=== PATIENT | male | born 1990 | race Caucasian/White ===

== ENCOUNTER 2021-11-01 10:00 | Outpatient (RCR) | payer MEDICAID, SELFPAY | END 2021-11-08 10:43 | disposition home or self-care (01) | LOC: HO.PTCHIC 10:00 | PROVIDERS: PCP Family Medicine; Visit Provider Family Medicine | DX: M54.9 Dorsalgia, unspecified (principal); M25.562 Pain in left knee | CPT/HCPCS: 97110; 97140; 97161 ==

== ENCOUNTER → 2022-01-14 15:03 | Outpatient (BNVA) | payer MEDICAID, SELFPAY | PROVIDERS: PCP Family Medicine; Referring Provider Family Medicine; Visit Provider Nurse Practitioner Family | DX: K21.9 Gastro-esophageal reflux disease without esophagitis (principal); R14.0 Abdominal distension (gaseous) | CPT/HCPCS: 99202 ==

== ENCOUNTER 2022-05-29 05:39 | Emergency (ER) | payer MEDICAID, SELFPAY ==
--- NOTE | ~2022-05-29 | XR_ITS ---
EXAMINATION: PORTABLE CHEST 1 VIEW CLINICAL INFORMATION: dyspnea . COMPARISON: No recent pertinent prior studies are available for comparison. TECHNIQUE: Portable frontal view of the chest was obtained. FINDINGS: The lungs are hypoexpanded with right basilar markings more likely due to atelectasis. Tiny right effusion would be difficult to exclude. No focal infiltrate, left effusion, edema, or pneumothorax. Cardiac and mediastinal silhouettes are within normal limits for technique. No acute bony abnormality seen. XR/XR chest 1V IMPRESSION: Hypoexpanded with right basilar markings more likely due to subsegmental atelectasis and possible tiny layering right effusion.
--- NOTE | ~2022-05-29 | US_ITS ---
EXAMINATION: US ABDOMEN LIMITED CLINICAL INFORMATION: Right upper quadrant pain.. COMPARISON: None TECHNIQUE: Real-time imaging of the right upper quadrant abdominal viscera. FINDINGS: GALLBLADDER: The gallbladder is physiologically distended without evidence of stones, sludge, polyps, wall thickening or pericholecystic fluid. However there is mild tenderness in the right upper quadrant. There is a prominent echogenic stranding in the gallbladder question fullness versus small calcification. CBD: CBD measures 0.7 cm FREE FLUID: None. US/US abdomen limited IMPRESSION: No echogenic stones or wall thickening or pericholecystic fluid. There is minimal tenderness in the area of gallbladder by ultrasound probe. CBD is slightly prominent measuring 0.7 cm.
[2022-05-29 06:04] VITALS: BP 155/95; PULSE 85; RESP 18; TEMP 37.1; O2SAT 97; BMI 38.5
--- NOTE | 2022-05-29 06:33 | ED.SOB ---
HPI - SOB/Dyspnea General Chief Complaint: Upper Respiratory Symptoms Stated Complaint: Sob Time Seen by Provider: 05/29/22 06:32 Source: patient Mode of arrival: ambulatory Limitations: no limitations History of Present Illness HPI Narrative: 31 yo male with hx of DM, HTN, fatty liver, mood disorder here with c/o working outside friday not taking his medications then suffering heat stroke he reports that he had weakness n/v all day and passed out no injuries. Yesterday he felt short of breath and went to who noted his LFTS were high ? [facility] sent him to [facility] in ambulance. He also felt short of breath. Was in the waiting room. At that time he had a CXR and ended up leaving his PCP told him after LWT he might have fluid on his lungs. MD elicited complaint: shortness of breath and pain with inspiration Pertinent past history: diabetes Onset (ago): day(s) (1) Context: recent illness Timing: intermittent Severity: moderate Exacerbating factors: exertion, coughing and inspiration Relieving factors: nothing Known history of: diabetes Associated symptoms: chest pain, pain with inspiration and abdominal pain Treatment prior to arrival: none Related Data Home Medications Medication Instructions Recorded Confirmed omeprazole 40 mg capsule,delayed 40 mg PO DAILY 12/05/21 release trazodone 50 mg tablet 50 mg PO BEDTIME PRN 12/05/21 lisinopril 10 mg tablet 10 mg PO DAILY 01/14/22 01/14/22 metformin 500 mg tablet 500 mg PO BID 01/14/22 01/14/22 Previous Rx's Medication Instructions Recorded famotidine 20 mg tablet (Pepcid) 20 mg PO BEDTIME #30 tabs 01/14/22 simethicone 180 mg capsule (Gas 180 mg PO BID PRN abdominal 01/14/22 Relief (simethicone)) distention #60 caps Allergies Allergy/AdvReac Type Severity Reaction Status Date / Time olanzapine Allergy Severe liver Verified 01/14/22 15:06 toxicity Review of Systems Review of Systems: Constitutional : No Fever, No Chills ENT/Mouth : No sore throat, No Rhinorrhea, No Swallowing Difficulty Eyes: No Eye Pain, No Swelling, No Redness Cardiovascular : No Chest Pain, positive SOB, No Orthopnea, no Edema Respiratory : No Cough, No Sputum, No Wheezing, positive dyspnea Gastrointestinal : No Nausea, No Vomiting, No Diarrhea, pos abdominal Pain, No Hematochezia, No Melena Genitourinary : No Dysuria, No Urinary Frequency, No Hematuria Musculoskeletal : No joint pain, No Myalgias Skin : No Skin Lesions, No rash Neuro : No Weakness, No Numbness, No Dizziness, No Headache Psych : No Anxiety/Panic, No Depression Heme/Lymph: No Bruising, No Lymphadenopathy Endocrine : No Polyuria, No Polydipsia All other systems reviewed and are negative [facility] Past Medical History Attestation statement: The following information was validated with the patient. Medical History Diabetes Fatty liver HTN (hypertension) Mood disorder Social History Social History (Updated 05/29/22 @ 06:49 by Cristy Aguilar DO) Patient Tobacco Use Status: Never used Tobacco Advance Directives: No Physical Exam Vital Signs: Vital Signs: Last Vital Signs Temp 98.7 F 05/29/22 06:04 Pulse 68 05/29/22 08:47 Resp 16 05/29/22 08:47 BP 142/85 H 05/29/22 08:47 Pulse Ox 98 05/29/22 08:47 O2 Del Method 05/29/22 08:47 BMI result Body Mass Index 38.5 Appearance: Alert. Oriented X3. No acute distress. Eyes: Pupils equal, round and reactive to light. ENT: Pharynx normal. Neck: Normal inspection. Neck supple. CVS: Normal heart rate and rhythm. Pulses normal. Respiratory: No respiratory distress. Breath sounds ndiminished at the bases Abdomen: Soft and RUQ ttp no rebound or guarding Skin: Skin warm and dry. Normal skin color. Normal skin turgor. Extremities: No lower extremity edema. No calf ttp Neuro: Oriented X 3. No motor deficit. No sensory deficit. Course Course Course Narrative: ddimer negative under 230 atelectasis on CXR, no hypoxia, walking in ED to xray no distress, labs within normal limits - mild elevation in LFTs but has fatty liver doubt cholecystitis - can follow up with PCP slight bump in bili but known fatty liver CPK only 578 but Cr normal MDM - SOB/Dyspnea MDM Narrative Medical decision making narrative: 31 yo male with hx of DM, HTN, fatty liver, mood disorder at this time he has c/o RUQ pain and BOYD along with pleuritic chest pain will obtain labs, CXR, possible RUQ US given pleuritic chest pain will also obtain ddimer. He is not toxic or hypoxic at this time. Possible pleurisy, low probability PE, possible aspiration pneumonia post vomiting. Dispo per results and findings. Lab Data Result diagrams: 05/29/22 07:02 05/29/22 07:02 Labs: Lab Results 05/29/22 05/29/22 05/29/22 Range/Units 07:02 07:02 07:02 WBC 4.7 L (4.8-10.8) X10*3/uL RBC 5.03 (4.60-5.80) X10*6/uL Hgb 13.1 L (14.0-18.0) g/dl Hct 39.2 L (42.0-52.0) % MCV 77.9 L (80.0-98.0) fL MCH 26.0 L (27.0-33.0) pg MCHC 33.4 (31.0-36.0) g/dl RDW 12.3 (11.0-16.0) % Plt Count 277 (160-400) X10*3/uL MPV 9.8 (9.4-12.4) fL Immature Gran % (Auto) 0.4 (0.0-0.4) % Neut % (Auto) 49.0 (45-73) % Lymph % (Auto) 34.2 (20-40) % Loup % (Auto) 15.2 H (2-11) % Eos % (Auto) 0.8 (0-4) % Baso % (Auto) 0.4 (0-2) % Lymph # (Auto) 1.6 (1.2-4.9) X10*3/uL [place] # (Auto) 0.7 (0.1-1.2) X10*3/uL Eos # (Auto) 0.0 (0.0-0.4) X10*3/uL Baso # (Auto) 0.0 (0.0-0.2) X10*3/uL Abs Immat Gran (auto) 0.02 (0.00-0.03) X10*3/uL Absolute Neuts (auto) 2.3 (2.0-8.3) x10*3/uL Absolute Nucleated RBC 0.000 (0.0-0.012) X10*3/uL Nucleated RBC % (auto) 0.0 (0.0-0.2) /100WBC D-Dimer High Sensitivty 220 NG/ML Sodium 137 (135-145) mmol/L Potassium 3.8 (3.3-5.1) mmol/L Chloride 105 (96-108) mmol/L Carbon Dioxide 25 (22-29) mmol/L Anion Gap 11 L (12-20) BUN 11 (9-16) mg/dL Creatinine 0.78 (0.5-1.4) mg/dL Estim Creat Clear Calc 222.2 Estimated GFR > 60 POC Glucose (60-115) mg/dL Random Glucose 169 H (60-115) mg/dL Calcium 9.1 (8.4-10.2) mg/dL Magnesium 1.8 (1.6-2.6) mg/dL Total Bilirubin 1.2 H (0.0-1.0) mg/dL Direct Bilirubin 0.5 (0.0-0.5) mg/dL AST 50 H (5-37) U/L ALT 80 H (0-40) U/L Alkaline Phosphatase 69 (39-117) U/L Total Creatine Kinase 578 H (38-174) U/L Troponin I High Sens (<3.5-35.0) ng/L B-Natriuretic Peptide (<100) pg/mL Total Protein 7.5 (6.5-8.0) g/dL Albumin 4.4 (3.5-5.0) g/dL Lipase 12 (8-78) U/L COVID-19 (OCTAVIO) (Negative) COVID-19 Clin Com 05/29/22 05/29/22 05/29/22 Range/Units 07:02 07:02 07:02 WBC (4.8-10.8) X10*3/uL RBC (4.60-5.80) X10*6/uL Hgb (14.0-18.0) g/dl Hct (42.0-52.0) % MCV (80.0-98.0) fL MCH (27.0-33.0) pg MCHC (31.0-36.0) g/dl RDW (11.0-16.0) % Plt Count (160-400) X10*3/uL MPV (9.4-12.4) fL Immature Gran % (Auto) (0.0-0.4) % Neut % (Auto) (45-73) % Lymph % (Auto) (20-40) % [place]oup % (Auto) (2-11) % Eos % (Auto) (0-4) % Baso % (Auto) (0-2) % Lymph # (Auto) (1.2-4.9) X10*3/uL [place] # (Auto) (0.1-1.2) X10*3/uL Eos # (Auto) (0.0-0.4) X10*3/uL Baso # (Auto) (0.0-0.2) X10*3/uL Abs Immat Gran (auto) (0.00-0.03) X10*3/uL Absolute Neuts (auto) (2.0-8.3) x10*3/uL Absolute Nucleated RBC (0.0-0.012) X10*3/uL Nucleated RBC % (auto) (0.0-0.2) /100WBC D-Dimer High Sensitivty NG/ML Sodium (135-145) mmol/L Potassium (3.3-5.1) mmol/L Chloride (96-108) mmol/L Carbon Dioxide (22-29) mmol/L Anion Gap (12-20) BUN (9-16) mg/dL Creatinine (0.5-1.4) mg/dL Estim Creat Clear Calc Estimated GFR POC Glucose (60-115) mg/dL Random Glucose (60-115) mg/dL Calcium (8.4-10.2) mg/dL Magnesium (1.6-2.6) mg/dL Total Bilirubin (0.0-1.0) mg/dL Direct Bilirubin (0.0-0.5) mg/dL AST (5-37) U/L ALT (0-40) U/L Alkaline Phosphatase (39-117) U/L Total Creatine Kinase (38-174) U/L Troponin I High Sens < 3.5 (<3.5-35.0) ng/L B-Natriuretic Peptide 38 (<100) pg/mL Total Protein (6.5-8.0) g/dL Albumin (3.5-5.0) g/dL Lipase (8-78) U/L COVID-19 (OCTAVIO) Negative (Negative) COVID-19 Clin Com See Note 05/29/22 Range/Units 08:50 WBC (4.8-10.8) X10*3/uL RBC (4.60-5.80) X10*6/uL Hgb (14.0-18.0) g/dl Hct (42.0-52.0) % MCV (80.0-98.0) fL MCH (27.0-33.0) pg MCHC (31.0-36.0) g/dl RDW (11.0-16.0) % Plt Count (160-400) X10*3/uL MPV (9.4-12.4) fL Immature Gran % (Auto) (0.0-0.4) % Neut % (Auto) (45-73) % Lymph % (Auto) (20-40) % [place]oup % (Auto) (2-11) % Eos % (Auto) (0-4) % Baso % (Auto) (0-2) % Lymph # (Auto) (1.2-4.9) X10*3/uL [place]oup # (Auto) (0.1-1.2) X10*3/uL Eos # (Auto) (0.0-0.4) X10*3/uL Baso # (Auto) (0.0-0.2) X10*3/uL Abs Immat Gran (auto) (0.00-0.03) X10*3/uL Absolute Neuts (auto) (2.0-8.3) x10*3/uL Absolute Nucleated RBC (0.0-0.012) X10*3/uL Nucleated RBC % (auto) (0.0-0.2) /100WBC D-Dimer High Sensitivty NG/ML Sodium (135-145) mmol/L Potassium (3.3-5.1) mmol/L Chloride (96-108) mmol/L Carbon Dioxide (22-29) mmol/L Anion Gap (12-20) BUN (9-16) mg/dL Creatinine (0.5-1.4) mg/dL Estim Creat Clear Calc Estimated GFR POC Glucose 161 H (60-115) mg/dL Random Glucose (60-115) mg/dL Calcium (8.4-10.2) mg/dL Magnesium (1.6-2.6) mg/dL Total Bilirubin (0.0-1.0) mg/dL Direct Bilirubin (0.0-0.5) mg/dL AST (5-37) U/L ALT (0-40) U/L Alkaline Phosphatase (39-117) U/L Total Creatine Kinase (38-174) U/L Troponin I High Sens (<3.5-35.0) ng/L B-Natriuretic Peptide (<100) pg/mL Total Protein (6.5-8.0) g/dL Albumin (3.5-5.0) g/dL Lipase (8-78) U/L COVID-19 (OCT[facility]IO) (Negative) COVID-19 Clin Com ECG Data Attestation: I personally reviewed and interpreted this ECG as follows: ECG interpretation date: 05/29/22 ECG interpretation time: 07:11 Interpretation: Rate:70 Rhythm: NSR [place]: normal Normal P waves. Normal LUCIAN. Normal QRS complex. ST T wave : no TROY, inverted III qTC: normal prior studies: no acute ischemia The study has been interpreted contemporaneously by me. . Discharge Plan Discharge Clinical Impression: Acute dyspnea, Abdominal pain Patient Disposition: Home, Self-Care Instructions: Abdominal Pain (ED), Dyspnea (ED) Additional Instructions: return to ED for any worsening symptoms or concerns labs for your heart including heart ischemia, blood clot in lungs, heart failure were all normal. there is no significant fluid on your lungs US of your gallbadder shows no active infection Prescriptions: No Action omeprazole 40 mg capsule,delayed release(DR/EC) 40 mg PO DAILY trazodone 50 mg tablet 50 mg PO BEDTIME PRN famotidine [Pepcid] 20 mg tablet 20 mg PO BEDTIME Qty: 30 3RF simethicone [Gas Relief (simethicone)] 180 mg capsule 180 mg PO BID PRN (Reason: abdominal distention) Qty: 60 1RF metformin 500 mg tablet 500 mg PO BID lisinopril 10 mg tablet 10 mg PO DAILY Referrals: Michelle Rodas MD [Primary Care Provider] - 2 days (if not better) Stand Alone Forms: Work/School Release
--- NOTE | 2022-05-29 06:40 | ECG_ITS ---
Test Reason : chest pain/ diff breathing Blood Pressure : / mmHG Vent. Rate : 070 BPM Atrial Rate : 070 BPM P-R Int : 182 ms QRS Dur : 098 ms QT Int : 382 ms P-R-T Axes : 035 019 015 degrees QTc Int : 412 ms Normal sinus rhythm Normal ECG No previous ECGs available Referred By: Cristy Aguilar Electronically Signed By:RAJINDER HARRIS
[2022-05-29 07:08] LABS: MANUAL DIFF FLAG NO
[2022-05-29 07:11] LABS: Basophils Percent Auto 0.4 % (0-2); Eosinophils Percent Auto 0.8 % (0-4); Hematocrit 39.2 % (42.0-52.0); Hemoglobin 13.1 g/dl (14.0-18.0); Imm Gran Abs Auto 0.02 X10*3/uL (0.00-0.03); Imm Gran Pct Auto 0.4 % (0.0-0.4); Lymphocytes Absolute Auto 1.6 X10*3/uL (1.2-4.9); Lymphocytes Percent Auto 34.2 % (20-40); Mean Corpuscular HGB Conc 33.4 g/dl (31.0-36.0); Mean Corpuscular Volume 77.9 fL (80.0-98.0); Mean Platelet Volume 9.8 fL (9.4-12.4); Monocytes Absolute Auto 0.7 X10*3/uL (0.1-1.2); Monocytes Percent Auto 15.2 % (2-11); Neutrophils Absolute Auto 2.3 x10*3/uL (2.0-8.3); Platelet Count 277 X10*3/uL (160-400); Red Blood Count 5.03 X10*6/uL (4.60-5.80); Red Cell Distribution Width 12.3 % (11.0-16.0); White Blood Count 4.7 X10*3/uL (4.8-10.8)
[2022-05-29 07:23] LABS: D Dimer High Sensitivity 220 NG/ML
[2022-05-29 07:27] LABS: Alanine Aminotransferase 80 U/L (0-40); Albumin Level 4.4 g/dL (3.5-5.0); Alkaline Phosphatase 69 U/L (39-117); Anion Gap 11 (12-20); Aspartate Amino Transferase 50 U/L (5-37); Bilirubin Direct 0.5 mg/dL (0.0-0.5); Bilirubin Total 1.2 mg/dL (0.0-1.0); Blood Urea Nitrogen 11 mg/dL (9-16); Calcium 9.1 mg/dL (8.4-10.2); Carbon Dioxide 25 mmol/L (22-29); Chloride 105 mmol/L (96-108); Creatinine Clr Calc Pharmacy 222.2; Estimated Glomerular Filt Rate > 60; Glucose Random 169 mg/dL (60-115); Lipase 12 U/L (8-78); Magnesium 1.8 mg/dL (1.6-2.6); Potassium 3.8 mmol/L (3.3-5.1); Sodium 137 mmol/L (135-145); Total Protein 7.5 g/dL (6.5-8.0)
[2022-05-29 07:29] LABS: COVID-19 Test Negative (Negative)
[2022-05-29 07:33] LABS: B Type Natriuretic Peptide 38 pg/mL (<100); Troponin-I High Sensitivity < 3.5 ng/L (<3.5-35.0)
[2022-05-29 08:47] VITALS: BP 142/85; PULSE 68; RESP 16; O2SAT 98
[2022-05-29 08:54] LABS: Glucose, Whole Blood 161 mg/dL (60-115)
== END 2022-05-29 09:34 | disposition home or self-care (01) ==
PROVIDERS: Emergency Provider Emergency Medicine; PCP Family Medicine
DX: R06.02 Shortness of breath (principal); R10.11 Right upper quadrant pain; Z20.822 Contact with and (suspected) exposure to COVID-19; E11.9 Type 2 diabetes mellitus without complications; I10 Essential (primary) hypertension
CPT/HCPCS: 36415; 71045; 76705; 80048; 80076; 82550; 82947; 83690; 83735; 83880; 84484; 85025; 85379; 87635; 93005; 99283; 99284

== ENCOUNTER 2024-01-07 16:09 | Outpatient (REF) | payer MEDICAID, SELFPAY ==
[2024-01-07 17:50] LABS: Appearance Urine Clear; Color Urine Yellow; Glucose Urine UA 100 mg/dL (Negative); Leukocyte Esterase Urine Negative (Negative); Nitrite Urine Negative (Negative); PH 5.5 (5.0-9.0); Specific Gravity - Urine 1.025 (1.005-1.025); Urine Blood Negative (Negative); Urine Ketones Trace mg/dL (Negative); Urine Protein Trace mg/dL (Neg-Trace)
[2024-01-08 03:32] LABS: CT PCR NOT DETECTED (Not Detect.); NG PCR NOT DETECTED (Not Detect.)
== END 2024-01-07 16:10 | disposition home or self-care (01) ==
LOC: HO.CHCLNP 16:09
PROVIDERS: Visit Provider Internal Medicine
DX: N50.82 Scrotal pain (principal)
CPT/HCPCS: 0353U; 81003

== ENCOUNTER 2024-04-14 11:40 | Outpatient (AMB) | payer MEDICAID, SELFPAY ==
--- NOTE | 2024-04-14 11:38 | MHC.OFFVIS ---
Intake Visit Reasons: recurrent balanitis Intake Note: New Patient presents for initial visit for Recurrent Balanitis Urology Medications: none Blood Thinner: none Allergies olanzapine Allergy (Severe, Verified 04/14/24 12:01) liver toxicity Medication List - Last Reconciled 04/14/24 by ADIEL Henderson famotidine (Pepcid) 20 mg PO BEDTIME glipizide 10 mg PO BID lisinopril 10 mg PO DAILY metformin 500 mg PO BID omeprazole 40 mg PO DAILY simethicone (Gas Relief (simethicone)) 180 mg PO BID PRN trazodone 50 mg PO BEDTIME PRN HPI Comments Details: Rodriguez is a very pleasant 33-year-old male patient of Dr. Rodas. He has a past medical history of fatty liver, diabetes, hypertension, and mood disorder. He presents to the office today as new patient for balanitis. In discussion with the patient today he reports having followed up with his PCP for issues he had been having with the foreskin on his penis. He reports he was given a topical cream and Flagyl. He reports since completing medications he feels symptoms have since improved. He is declining physical assessment today. He denies any urinary issues or concerns. Discussed at length importance of managing diabetes for overall health and well-being as well as for balanitis. He denies urinary urgency, urinary frequency, incontinence, nocturia, hematuria, dysuria, foul smelling urine, changes to urinary stream, flank pain, fever, and or chills. He is happy with his current voiding parameters. In office urinalysis results reviewed with the patient today. [facility] Medical History Fatty liver Diabetes HTN (hypertension) Mood disorder Social History Patient Tobacco Use Status: Never used Tobacco Review of Systems Const Reports no additional complaints Eyes Reports no additional complaints ENT Reports no additional complaints Card Reports as per HPI Resp Reports no additional complaints GI Reports as per HPI Reports as per HPI Musc Reports no additional complaints Neuro Reports no additional complaints Psych Reports as per HPI Endo Reports as per HPI Fortino/Lymph Reports no additional complaints Aller/Immun Reports no additional complaints Physical Exam Const General: cooperative, healthy appearing, comfortable, no acute distress, well developed, alert and awake Nutritional Appearance: overweight Orientation/consciousness: patient oriented x3 Limitations: no limitations HEENT Head: Yes normal to inspection, Yes normocephalic and Yes atraumatic Ears: hearing grossly normal bilaterally Eyes General: appearance normal, both eyes and all related structures Neck Neck: Yes normal visual inspection and Yes trachea midline Chest Chest palpation & inspection: normal inspection of the chest Resp Effort & Inspection: normal respiratory effort and able to speak in complete sentences Cardio Rate: regular rate GI Inspection: Yes normal to inspection General: Yes no CVA tenderness Back/Spine/Pelvis Back: no CVA tenderness Skin General skin exam: no rashes or lesions noted Neuro General: patient oriented x3 Extrem General: Yes normal to inspection Psych Appearance: grossly normal and well kempt Mental Status: mental status grossly normal Speech and movement: Normal speech and movement present and Clear speech present Affect: normal affect Attitude: cooperative Thought process: Normal thought process present Thought content: Normal thought content present Insight: Fair insight present (Psych) Judgement: Fair judgement present (Psych) Results AMB Urinalysis, Automated UA Leukoctes 0 Larry/uL Last Edit by Zakada on 04/14/24 11:57 UA Nitrite Negative Last Edit by Zakada on 04/14/24 11:57 UA Urobilinogen 0.2 mg/dL Last Edit by Zakada on 04/14/24 11:57 UA Protein 0 mg/dL Last Edit by Zakada on 04/14/24 11:57 UA pH 5.0 Last Edit by Zakada on 04/14/24 11:57 UA Blood 0 Seferino/uL Last Edit by Zakada on 04/14/24 11:57 UA Specific [place] 1.010 Last Edit by Zakada on 04/14/24 11:57 UA Ketone Negative Last Edit by Zakada on 04/14/24 11:57 UA Bilirubin 0 mg/dL Last Edit by Zakada on 04/14/24 11:57 UA Glucose 1000 mg/dL Last Edit by Zakada on 04/14/24 11:57 Results Reviewed Results Reviewed: Laboratory Last Values Urine pH (Auto) 5.0 04/14/24 11:40 Specific [place] (Auto) 1.010 04/14/24 11:40 Urine Protein (Auto) 0 mg/dL 04/14/24 11:40 Glucose (UA)(Auto) 1000 mg/dL 04/14/24 11:40 Urine Ketones (Auto) Negative 04/14/24 11:40 Urine Blood (Auto) 0 Seferino/uL 04/14/24 11:40 Urine Nitrite (Auto) Negative 04/14/24 11:40 Urine Bilirubin (Auto) 0 mg/dL 04/14/24 11:40 Urine Urobilinogen (Auto) 0.2 mg/dL 04/14/24 11:40 Leukocyte Esterase (Auto) 0 Larry/uL 04/14/24 11:40 Assessment & Plan Assessment & Plan (1) Balanitis: Code(s): N48.1 - Balanitis Category: Medical Plan In office urinalysis results reviewed with the patient today; as noted above. Discussed at length potential causes of balanitis Discussed and stressed the importance of managing diabetes for balanitis as well as overall health and well-being. Patient currently denies any bothersome urinary issues or concerns. He reports be happy with current voiding parameters. Discussed proper care of area. Follow-up as needed. Orders: Orders AMB Urinalysis Automated Today Z13.9 - Encounter for screening, unspecified Patient Instructions: The patient had an opportunity to ask questions regarding the treatment plan. All questions were answered. Physical exam, labs, and imaging were discussed and reviewed in detail. As well as risks, benefits, and discussion of treatment choices. No major barriers to understanding were identified. The patient expressed understanding and agreement with the above treatment plan. The patient was made aware they should contact our office by phone for worsening of their current condition, the appearance of new symptoms, or with any questions or concerns. Compliance is encouraged with any medications and follow up testing that is ordered. It is a privilege to be allowed the opportunity to participate in? your urological care.? Again, if you have any questions or concerns If you have any questions or concerns please do not hesitate to contact me. The office is [phone]. This note is constructed using voice recognition software. While every effort has been made to ensure accuracy asbestos surveyor errors may have been included. Yours sincerely, HAWA Henderson Coding Level of Care Code New Pt Level 3 (41419) Diagnoses Balanitis N48.1
== END 2024-04-14 12:01 | disposition home or self-care (01) ==
PROVIDERS: PCP Family Medicine; Visit Provider Nurse Practitioner Family
DX: Z13.9 Encounter for screening, unspecified (principal); N48.1 Balanitis
CPT/HCPCS: 99203

== ENCOUNTER → 2024-04-14 11:40 | Outpatient (BNVA) | payer MEDICAID, SELFPAY | PROVIDERS: PCP Family Medicine; Visit Provider Nurse Practitioner Family | DX: N48.1 Balanitis (principal); E11.9 Type 2 diabetes mellitus without complications | CPT/HCPCS: 81003; 99212 ==